=== PATIENT | male | born 1945 | race Caucasian/White ===

== ENCOUNTER 2018-06-10 06:35 | Day surgery (SDC) ==
[2018-01-28 10:59] VITALS: BMI 24.3
[2018-06-10] MEDS: TETRACAINE 0.5% UNIT-DOSE OP PRN ×2 (07:55→09:40)
[2018-06-10] MEDS: BETADINE OPTH PREP OP PRN ×2 (07:55→09:40)
[2018-06-10] MEDS: CYCLOGYL 2% OPTH OP PRN ×3 (07:56→08:06)
[2018-06-10] MEDS ORDERED: BRIMONIDINE TARTRATE 0.2% OPTH SOL OP PRN (08:08)
[2018-06-10] MEDS ORDERED: BSS WITH EPINEPHRINE OP ONE (08:08)
[2018-06-10] MEDS ORDERED: LIDOCAINE 1% 20 ML MDV ID STA (08:08)
[2018-06-10] MEDS ORDERED: ZOFRAN 4 MG/2 ML IVP ONE (08:08)
[2018-06-10 08:13] VITALS: TEMP 70
[2018-06-10] MEDS ORDERED: VERSED ONE (09:40)
[2018-06-10] MEDS ORDERED: ZOFRAN 4 MG/2 ML ONE (09:40)
[2018-06-10] MEDS ORDERED: SUBLIMAZE ONE (09:40)
[2018-06-10] MEDS: DEX-MOXI-KETOR OPTH INJ 1/0.5/0.4 MG/ML IO ONE ×2 (09:46→09:52)
[2018-06-10] MEDS: LIDOCAINE 1%/PHENYLEPHRINE 1.5% BSS (SURGERY) INTRAOCULA ONE ×2 (09:46→09:51)
[2018-06-10 10:26] VITALS: BP 117/66
== END 2018-06-10 10:35 | disposition home or self-care (01) ==
LOC: SURG 06:35
PROVIDERS: ATTEND Ophthalmology
DX: H25.812 Combined forms of age-related cataract, left eye (principal)